=== PATIENT | female | born 1995 | race Two or more races ===

== ENCOUNTER → 2020-08-17 | Outpatient (CLI) | payer OTHER | END | disposition home or self-care (01) | LOC: PPH VACUNA | DX: Z23 Encounter for immunization (principal) ==

== ENCOUNTER → 2020-09-07 13:28 | Outpatient (CLI) | payer OTHER | END | disposition home or self-care (01) | LOC: PPH VACUNA 13:28 | DX: Z23 Encounter for immunization (principal) ==

== ENCOUNTER 2021-05-24 02:00 | Outpatient (CLI) | payer OTHER | END 2021-05-24 02:30 | disposition home or self-care (01) | LOC: PPH VACUNA 02:00 | PROVIDERS: ATTEND Emergency Medicine Pediatric Emergency Medicine | DX: Z23 Encounter for immunization (principal) ==

== ENCOUNTER 2024-10-30 19:27 | Inpatient (IN) | payer OTHER ==
[~2024-10-30] VITALS: Ht 165.1 cm; Wt 90.7 kg
[2024-10-30] MEDS ORDERED: [UNRECOGNIZED DRUG - OTHER] (19:41)
[2024-10-30] MEDS ORDERED: MIDODRINE HCL10 MG (19:41)
[2024-10-30] MEDS ORDERED: DULCOLAX5 MG (19:42)
[2024-10-30] MEDS ORDERED: LOVENOX30 MG/0.3 (19:42)
--- NOTE | 2024-10-30 19:42 | NUR ---
SE RECIBE PTE ALERTA Y ORIENTADA X3, EN AMBULANCIA EN COMPANIA DE PARAMEDICOS. REFIEREN HGB EN 8.1 Y UTI. ENVIADA POR . SE MELISSA SV Y SE UBICA
--- NOTE | 2024-10-30 20:07 | NUR ---
DARÍO MCCOY ORIENTA A PTE SOBRE TX MEDICO Y LA MISMA REFIERE ENTENDER Y ACEPTAR. CANALIZA Y COLECTA MUESTRAS DE LAB, CATETERIZA BAJO MEDIDAS ESTERILES PARA OBTENER MUESTRA DE UC Y UA.
[2024-10-30 20:33] LABS: BASO % 0.5 % (0.1-1.2); EOS # 0.37 (0.04-0.54); EOS % 2.6 % (0.7-7.0); LYMPH # 2.44 (1.18-3.74); LYMPH % 17.3 % (19.3-53.1); MEAN PLATELET VOLUME 9.60 fl (9.4-12.4); MONO # 1.16 (0.24-0.82); MONO % 8.2 % (4.7-12.5); NEUT # 10.00 (1.56-6.13); NEUT % 71.0 % (34.0-71.1); RED CELL DISTRIBUTION WIDTH 18.3 % (11.6-14.4)
[2024-10-30 20:56] LABS: URINE APPEARANCE Turbid; URINE BILIRRUBIN Negative (NEGATIVE); URINE BLOOD Large; URINE COLOR Yellow; URINE GLUCOSE Negative (NEGATIVE); URINE KETONE Negative (NEGATIVE); URINE LEUKOCYTE Large; URINE NITRATE Positive; URINE UROBILINOGEN 1.0 E.U./dl
[2024-10-30 20:57] LABS: URINE EPITHELIAL CELLS 113.0 uL (0.0-38.8); URINE RBC 175.2 uL (0.0-20.8)
[2024-10-30 21:12] LABS: ALT/SGPT 41.0 U/L (12-78); AST/SGOT 38.0 U/L (15-37); BILIRUBIN TOTAL 0.39 mg/dL (0.3-1.2); BUN CREA RATIO 43.0 (7.0-25.0); GFR 286.85; GLOBULINA 4.7 G/DL (2.4-3.5); GLUCOSE FASTING 103.0 mg/dL (65-100); OSMOLALITY SERUM 274.0 MOSM/KG (275-295)
[2024-10-30 21:13] LABS: URINE BACTERIA > 9821.5 uL (0.0-1933); URINE CAST > 21.83 uL (0.0-1.40); URINE PROTEIN 300 (NEGATIVE); URINE WBC > 5548.3 uL (0.0-23.2)
[2024-10-30 21:23] LABS: CREATININE SERUM 0.28 mg/dL (0.55-1.02)
[2024-10-30 21:27] LABS: TYPE CELLS SQUAMOUS; URINE YEAST NEGATIVE /hpf
[2024-10-30] MEDS ORDERED: CEFTRIAXONE SODIUM 2,000 MG in 0.9 % SODIUM CHLORIDE 100 ML IV SCH (22:11)
[2024-10-30] MEDS ORDERED: GABAPENTIN 300 MG CAPSULE PO SCH (22:12)
[2024-10-30] MEDS ORDERED: ONDANSETRON HCL 4 MG in 0.9 % SODIUM CHLORIDE 50 ML IV PRN (22:15)
[2024-10-30] MEDS ORDERED: 0.9 % SODIUM CHLORIDE 1,000 ML IV SCH (22:15)
[2024-10-30] MEDS ORDERED: ACETAMINOPHEN 500 MG GEL..CAP PO PRN (22:15)
[2024-10-31] MEDS ORDERED: BACLOFEN 10 MG TABLET PO SCH (05:00)
[2024-10-31 05:25] VITALS: BP 105/69
[2024-10-31] MEDS ORDERED: LEVOTHYROXINE SODIUM 25 MCG TABLET PO SCH (06:00)
[2024-10-31 08:00] VITALS: BP 99/67; O2SAT 100
[2024-10-31] MEDS ORDERED: ENOXAPARIN SODIUM 40 MG/0.4 ML SYRINGE SUBCUTANEO SCH (09:00)
[2024-10-31] MEDS ORDERED: OXYBUTYNIN CHLORIDE 5 MG TABLET PO SCH (09:00)
[2024-10-31] MEDS ORDERED: FAMOTIDINE/PF 20 MG in 0.9 % SODIUM CHLORIDE 8 ML IV PUSH SCH (09:00)
[2024-10-31] MEDS ORDERED: DOCUSATE SODIUM 100MG CAP PO SCH (09:00)
[2024-10-31] MEDS ORDERED: IRON FUM,PS/FOLIC/BCOMP,C NO.9 1 CAP CAPSULE PO SCH (09:00)
[2024-10-31 16:42] VITALS: BP 104/65; O2SAT 100
[2024-10-31] MEDS ORDERED: LACTOBACILLUS ACIDOPHILUS 1 CAP CAP PO SCH (17:00)
[2024-10-31] MEDS ORDERED: TRAZODONE HCL 50 MG TABLET PO SCH (21:00)
[2024-11-01 03:25] VITALS: BP 90/56; O2SAT 100
[2024-11-01 10:14] VITALS: BP 114/79
[2024-11-01 11:13] LABS: BASO % 0.3 % (0.1-1.2); EOS # 0.56 (0.04-0.54); EOS % 6.2 % (0.7-7.0); LYMPH # 1.81 (1.18-3.74); LYMPH % 20.1 % (19.3-53.1); MEAN PLATELET VOLUME 11.00 fl (9.4-12.4); MONO # 0.42 (0.24-0.82); MONO % 4.7 % (4.7-12.5); NEUT # 6.14 (1.56-6.13); NEUT % 68.0 % (34.0-71.1); RED CELL DISTRIBUTION WIDTH 17.2 % (11.6-14.4)
[2024-11-02 03:10] VITALS: BP 84/52; O2SAT 98
[2024-11-02 08:58] VITALS: BP 100/60
[2024-11-03 09:44] LABS: FOLIC ACID 5.35 ng/ml (4.78-20)
== END 2024-11-02 20:26 | disposition home or self-care (01) | DRG 811 ==
LOC: ER 19:27 → MEDJ 22:19
PROVIDERS: General Practice; Internal Medicine Hematology & Oncology; ADMIT Student in an Organized Health Care Education/Training Program; ATTEND Student in an Organized Health Care Education/Training Program
PROC: 30233N1 Transfusion of Nonautologous Red Blood Cells into Peripheral Vein, Percutaneous Approach (ICD-10-PCS; principal; 2024-10-31)
DX: D64.9 Anemia, unspecified (principal); G82.50 Quadriplegia, unspecified; N39.0 Urinary tract infection, site not specified; E03.9 Hypothyroidism, unspecified

== ENCOUNTER 2024-12-08 13:23 | Inpatient (IN) | payer OTHER ==
[~2024-12-08] VITALS: Ht 175.3 cm; Wt 86.2 kg
[~2024-12-08 13:23] MED LIST: DULCOLAX5 MG; LOVENOX30 MG/0.3; MIDODRINE HCL10 MG; [UNRECOGNIZED DRUG - OTHER]
[2024-12-08] MEDS ORDERED: 0.9 % SODIUM CHLORIDE 1,000 ML IV SCH ×2 (14:00→19:30)
[2024-12-08 14:21] LABS: BASO % 0.5 % (0.1-1.2); EOS # 0.07 (0.04-0.54); EOS % 0.6 % (0.7-7.0); LYMPH # 2.02 (1.18-3.74); LYMPH % 18.7 % (19.3-53.1); MEAN PLATELET VOLUME 9.20 fl (9.4-12.4); MONO # 0.79 (0.24-0.82); MONO % 7.3 % (4.7-12.5); NEUT # 7.82 (1.56-6.13); NEUT % 72.5 % (34.0-71.1); RED CELL DISTRIBUTION WIDTH 16.9 % (11.6-14.4)
[2024-12-08 14:53] LABS: URINE APPEARANCE Turbid; URINE BILIRRUBIN Negative (NEGATIVE); URINE BLOOD Moderate; URINE COLOR Yellow; URINE GLUCOSE Negative (NEGATIVE); URINE KETONE 15 (NEGATIVE); URINE LEUKOCYTE Large; URINE NITRATE Negative; URINE PROTEIN 30 (NEGATIVE); URINE UROBILINOGEN 1.0 E.U./dl
[2024-12-08 14:55] LABS: COVID-19 AG NEGATIVE (NEGATIVE)
[2024-12-08 14:56] LABS: ALT/SGPT 12.0 U/L (12-78); AST/SGOT 8.0 U/L (15-37); BILIRUBIN TOTAL 0.3 mg/dL (0.3-1.2); BUN CREA RATIO 45.0 (7.0-25.0); GFR 422.95; GLOBULINA 5.4 G/DL (2.4-3.5); GLUCOSE FASTING 85.0 mg/dL (65-100); OSMOLALITY SERUM 275.0 MOSM/KG (275-295)
[2024-12-08 14:57] LABS: CREATININE SERUM 0.2 mg/dL (0.55-1.02)
[2024-12-08 14:57] LABS: URINE CAST 20.18 uL (0.0-1.40); URINE RBC 39.9 uL (0.0-20.8)
[2024-12-08 15:21] LABS: URINE EPITHELIAL CELLS > 201.7 uL (0.0-38.8); URINE WBC > 5548.3 uL (0.0-23.2)
[2024-12-08 15:22] LABS: URINE BACTERIA > 9821.5 uL (0.0-1933); URINE MUCUS SCANT
[2024-12-08 15:23] LABS: TYPE CELLS SQUAMOUS
[2024-12-08] MEDS ORDERED: DOCUSATE SODIUM 100MG CAP PO SCH (19:24)
[2024-12-08] MEDS ORDERED: ACETAMINOPHEN 500 MG GEL..CAP PO PRN (19:30)
[2024-12-08 19:47] VITALS: BP 100/60
[2024-12-08] MEDS ORDERED: MEROPENEM 500 MG/VIAL VIAL IV SCH (20:00)
[2024-12-08 21:43] LABS: INR 1.26
[2024-12-09 05:47] VITALS: BP 110/68; O2SAT 98
[2024-12-09] MEDS ORDERED: LEVOTHYROXINE SODIUM 25 MCG TABLET PO SCH (06:00)
[2024-12-09 08:00] VITALS: BP 107/71; O2SAT 97
[2024-12-09] MEDS ORDERED: GABAPENTIN 400 MG CAPSULE PO SCH (09:00)
[2024-12-09] MEDS ORDERED: IRON FUM,PS/FOLIC/BCOMP,C NO.9 1 CAP CAPSULE PO SCH (09:00)
[2024-12-09] MEDS ORDERED: ENOXAPARIN SODIUM 40 MG/0.4 ML SYRINGE SUBCUTANEO SCH (09:00)
[2024-12-09] MEDS ORDERED: MIDODRINE HCL 5 MG TABLET PO SCH (09:00)
[2024-12-09] MEDS ORDERED: SODIUM HYPOCHLORITE 1OZ TOP SCH (09:00)
[2024-12-09] MEDS ORDERED: BACLOFEN 10 MG TABLET PO SCH (09:00)
[2024-12-09] MEDS ORDERED: VANCOMYCIN HCL 1,000 MG VIAL IV SCH (13:00)
[2024-12-09 16:00] VITALS: BP 114/75; O2SAT 98
[2024-12-09] MEDS ORDERED: CIPROFLOXACIN IN 5 % DEXTROSE 200 ML IV SCH (17:00)
[2024-12-10 01:00] VITALS: BP 102/68; O2SAT 97
[2024-12-10] MEDS ORDERED: IPRATROPIUM BROMIDE 0.5 MG/2.5 ML AMPUL.NEB IH SCH (01:00)
[2024-12-10 08:00] VITALS: BP 99/67; O2SAT 98
[2024-12-10] MEDS ORDERED: Cyanocobalamin/Mecobalamin 1 TAB.SL SL SCH (09:00)
[2024-12-10] MEDS ORDERED: BUDESONIDE 0.5 MG/2 ML AMPUL.NEB IH SCH (09:00)
[2024-12-10] MEDS ORDERED: MIDODRINE HCL 5 MG TABLET PO SCH (09:00)
[2024-12-10] MEDS ORDERED: SOD FERRIC GLUC COMPLX/SUCROSE 62.5 MG in 0.9 % SODIUM CHLORIDE 50 ML IV SCH (09:00)
[2024-12-10] MEDS ORDERED: GABAPENTIN 400 MG CAPSULE PO SCH (09:00)
[2024-12-10] MEDS ORDERED: ENOXAPARIN SODIUM 40 MG/0.4 ML SYRINGE SUBCUTANEO SCH (09:00)
[2024-12-10] MEDS ORDERED: DOCUSATE SODIUM 100MG CAP PO SCH (09:00)
[2024-12-10] MEDS ORDERED: BACLOFEN 10 MG TABLET PO SCH (09:00)
[2024-12-10] MEDS ORDERED: OXYBUTYNIN CHLORIDE 5 MG TABLET PO SCH (09:00)
[2024-12-10 10:27] LABS: BASO % 0.8 % (0.1-1.2); EOS # 0.31 (0.04-0.54); EOS % 4.7 % (0.7-7.0); LYMPH # 2.01 (1.18-3.74); LYMPH % 30.5 % (19.3-53.1); MEAN PLATELET VOLUME 9.30 fl (9.4-12.4); MONO # 0.61 (0.24-0.82); MONO % 9.2 % (4.7-12.5); NEUT # 3.58 (1.56-6.13); NEUT % 54.2 % (34.0-71.1); RED CELL DISTRIBUTION WIDTH 17.1 % (11.6-14.4)
[2024-12-10 11:38] LABS: ALT/SGPT 38 U/L (12-78); AST/SGOT 40 U/L (15-37); BILIRUBIN TOTAL 0.34 mg/dL (0.3-1.2); GLOBULINA 4.3 G/DL (2.4-3.5); GLUCOSE FASTING 87 mg/dL (65-100); OSMOLALITY SERUM 275 MOSM/KG (275-295); TSH 4.780 uIU/mL (0.358-3.74)
[2024-12-10 11:41] LABS: BUN CREA RATIO 20 (7.0-25.0); CREATININE SERUM < 0.15 mg/dL (0.55-1.02); GFR 589.50
[2024-12-10 16:00] VITALS: BP 87/57; O2SAT 97
[2024-12-10] MEDS ORDERED: CHLORHEXIDINE GLUCONATE 120 ML BOTTLE TOP SCH (17:00)
[2024-12-10] MEDS ORDERED: MUPIROCIN 22 GM OINT..GM TUBE NASAL SCH (17:00)
[2024-12-10] MEDS ORDERED: AMITRIPTYLINE HCL 25 MG TABLET PO SCH (21:00)
[2024-12-10] MEDS ORDERED: POLYETHYLENE GLYCOL 3350 17 GM BLIST.PACK PO SCH (21:00)
[2024-12-11 01:52] VITALS: BP 93/64; O2SAT 100
[2024-12-11 06:20] LABS: URINE APPEARANCE Cloudy; URINE BILIRRUBIN Negative (NEGATIVE); URINE BLOOD Trace; URINE COLOR Yellow; URINE GLUCOSE Negative (NEGATIVE); URINE KETONE Negative (NEGATIVE); URINE LEUKOCYTE Trace; URINE NITRATE Negative; URINE PROTEIN 30 (NEGATIVE); URINE UROBILINOGEN 1.0 E.U./dl
[2024-12-11 06:29] LABS: URINE BACTERIA 33.5 uL (0.0-1933); URINE EPITHELIAL CELLS 14.9 uL (0.0-38.8); URINE RBC 3.2 uL (0.0-20.8); URINE WBC 57.3 uL (0.0-23.2)
[2024-12-11] MEDS ORDERED: CHLORHEXIDINE GLUCONATE 15ML BRUSH KIT MM SCH (06:42)
[2024-12-11] MEDS ORDERED: SODIUM CHLORIDE 0.45 % 1,000 ML IV SCH (06:45)
[2024-12-11 07:01] LABS: URINE CAST 0.87 uL (0.0-1.40); URINE CRYSTALS FEW /HPF
[2024-12-11 08:00] VITALS: BP 106/70; O2SAT 98
[2024-12-11] MEDS ORDERED: MUPIROCIN 15 GM OINT..GM TUBE NASAL SCH (09:00)
[2024-12-11] MEDS ORDERED: CHLORHEXIDINE GLUCONATE 120 ML BOTTLE TOP SCH (09:00)
[2024-12-11] MEDS ORDERED: ALBUMIN HUMAN 100 ML VIAL IV SCH (13:00)
[2024-12-11 16:00] VITALS: BP 110/62; O2SAT 100
[2024-12-11] MEDS ORDERED: VANCOMYCIN HCL 1,000 MG VIAL IV SCH (17:00)
[2024-12-12 02:14] VITALS: BP 104/55; O2SAT 97
[2024-12-12] MEDS ORDERED: LEVOTHYROXINE SODIUM 25 MCG TABLET PO SCH (06:00)
[2024-12-12 07:09] LABS: BASO % 0.6 % (0.1-1.2); EOS # 0.32 (0.04-0.54); EOS % 4.7 % (0.7-7.0); LYMPH # 2.01 (1.18-3.74); LYMPH % 29.6 % (19.3-53.1); MEAN PLATELET VOLUME 9.50 fl (9.4-12.4); MONO # 0.44 (0.24-0.82); MONO % 6.5 % (4.7-12.5); NEUT # 3.86 (1.56-6.13); NEUT % 57.0 % (34.0-71.1); RED CELL DISTRIBUTION WIDTH 17.2 % (11.6-14.4)
[2024-12-12 07:44] LABS: ALT/SGPT 20.0 U/L (12-78); AST/SGOT 10.0 U/L (15-37); BILIRUBIN TOTAL 0.34 mg/dL (0.3-1.2); GLOBULINA 3.7 G/DL (2.4-3.5); GLUCOSE FASTING 100.0 mg/dL (65-100); OSMOLALITY SERUM 278.0 MOSM/KG (275-295)
[2024-12-12 07:53] LABS: BUN CREA RATIO 12.0 (7.0-25.0); CREATININE SERUM 0.25 mg/dL (0.55-1.02); GFR 326.92
[2024-12-12 16:00] VITALS: BP 95/69; O2SAT 100
[2024-12-12] MEDS ORDERED: VANCOMYCIN HCL 5 MG/ML REDILUIDO IV SCH (17:00)
[2024-12-13 01:33] VITALS: BP 100/68; O2SAT 98
[2024-12-13 08:00] VITALS: BP 93/58; O2SAT 96
[2024-12-13 16:00] VITALS: BP 109/72; O2SAT 96
[2024-12-14 01:23] VITALS: BP 92/59; O2SAT 98
[2024-12-14 08:00] VITALS: BP 90/59; O2SAT 96
[2024-12-14 16:00] VITALS: BP 108/68; O2SAT 96
[2024-12-15 01:03] VITALS: BP 117/76; O2SAT 97
[2024-12-15] MEDS ORDERED: AMINO ACIDS/PROTEIN HYDROLYS 30 ML BLIST.PACK PO SCH (09:00)
[2024-12-15 09:45] VITALS: BP 101/66; O2SAT 98
[2024-12-15] MEDS ORDERED: LEVOFLOXACIN500 MG PO (13:05)
[2024-12-15] MEDS ORDERED: PROTONIX40 MG PO (13:06)
[2024-12-15 16:00] VITALS: BP 110/72; O2SAT 97
[2024-12-16 02:05] VITALS: BP 100/70; O2SAT 97
[2024-12-16 08:00] VITALS: BP 92/62; O2SAT 98
[2024-12-16 17:04] VITALS: BP 115/75; O2SAT 100
[2024-12-17 00:58] VITALS: BP 106/66; O2SAT 100
[2024-12-17 10:29] VITALS: BP 101/65; O2SAT 98
== END 2024-12-17 13:37 | DRG 592 ==
LOC: ER 13:23 → SURG 19:46 → SEC-K 19:46 → SURG 12-09 00:01 → SURH 12-09 15:01
PROVIDERS: Emergency Medicine; General Practice; Internal Medicine Infectious Disease; ADMIT Internal Medicine; ATTEND Internal Medicine
PROC: BW21YZZ Computerized Tomography (CT Scan) of Abdomen and Pelvis using Other Contrast (ICD-10-PCS; principal; 2024-12-08)
PROC: CP1Z1ZZ Planar Nuclear Medicine Imaging of Musculoskeletal System, All using Technetium 99m (Tc-99m) (ICD-10-PCS; 2024-12-08)
PROC: 0HB8XZZ Excision of Buttock Skin, External Approach (ICD-10-PCS; 2024-12-09)
PROC: 0HB6XZZ Excision of Back Skin, External Approach (ICD-10-PCS; 2024-12-09)
PROC: 8E0ZXY6 Isolation (ICD-10-PCS; 2024-12-09)
PROC: 30233N1 Transfusion of Nonautologous Red Blood Cells into Peripheral Vein, Percutaneous Approach (ICD-10-PCS; 2024-12-14)
DX: L89.154 Pressure ulcer of sacral region, stage 4 (principal); G82.50 Quadriplegia, unspecified; N39.0 Urinary tract infection, site not specified; L89.323 Pressure ulcer of left buttock, stage 3; L89.153 Pressure ulcer of sacral region, stage 3; D63.8 Anemia in other chronic diseases classified elsewhere; D64.9 Anemia, unspecified; Z74.01 Bed confinement status; B96.4 Proteus (mirabilis) (morganii) as the cause of diseases classified elsewhere; B96.89 Other specified bacterial agents as the cause of diseases classified elsewhere; B95.61 Methicillin susceptible Staphylococcus aureus infection as the cause of diseases classified elsewhere

== ENCOUNTER 2024-12-28 11:58 | Inpatient (IN) | payer OTHER ==
[~2024-12-28] VITALS: Ht 152.4 cm; Wt 86.2 kg
[~2024-12-28 11:58] MED LIST changes: +LEVOFLOXACIN500 MG PO; +PROTONIX40 MG PO
[2024-12-28] MEDS ORDERED: 0.9 % SODIUM CHLORIDE 1,000 ML IV STA (12:15)
[2024-12-28] MEDS ORDERED: OXYBUTYNIN CHLOR5 MG PO (12:20)
[2024-12-28] MEDS ORDERED: COLACE100 MG PO (12:20)
[2024-12-28] MEDS ORDERED: DIALYVITE TABL1 EACH PO (12:20)
[2024-12-28] MEDS ORDERED: IRON325 MG PO (12:21)
[2024-12-28] MEDS ORDERED: SENNA LAXATIVE8.6 MG PO (12:21)
[2024-12-28] MEDS ORDERED: GRALISE600 MG PO (12:21)
[2024-12-28] MEDS ORDERED: LEVO-T25 MCG PO (12:21)
[2024-12-28] MEDS ORDERED: MIDODRINE HCL10 MG PO (12:22)
[2024-12-28 13:15] LABS: BASO % 0.3 % (0.1-1.2); EOS # 0.01 (0.04-0.54); EOS % 0.1 % (0.7-7.0); LYMPH # 1.74 (1.18-3.74); LYMPH % 12.7 % (19.3-53.1); MEAN PLATELET VOLUME 9.70 fl (9.4-12.4); MONO # 1.23 (0.24-0.82); MONO % 9.0 % (4.7-12.5); NEUT # 10.57 (1.56-6.13); NEUT % 77.1 % (34.0-71.1); RED CELL DISTRIBUTION WIDTH 16.6 % (11.6-14.4)
[2024-12-28 13:19] LABS: ALT/SGPT 23.0 U/L (12-78); AST/SGOT 23.0 U/L (15-37); BILIRUBIN TOTAL 0.67 mg/dL (0.3-1.2); BUN CREA RATIO 63.0 (7.0-25.0); CREATININE SERUM 0.59 mg/dL (0.55-1.02); GFR 121.37; GLOBULINA 5.4 G/DL (2.4-3.5); GLUCOSE FASTING 101.0 mg/dL (65-100); OSMOLALITY SERUM 281.0 MOSM/KG (275-295)
[2024-12-28 13:20] LABS: URINE APPEARANCE Turbid; URINE BILIRRUBIN Negative (NEGATIVE); URINE BLOOD Moderate; URINE COLOR Yellow; URINE GLUCOSE Negative (NEGATIVE); URINE KETONE 15 (NEGATIVE); URINE LEUKOCYTE Large; URINE NITRATE Negative; URINE PROTEIN 30 (NEGATIVE); URINE UROBILINOGEN 1.0 E.U./dl
[2024-12-28 13:24] LABS: URINE BACTERIA 4434.0 uL (0.0-1933); URINE CAST 2.49 uL (0.0-1.40); URINE EPITHELIAL CELLS 7.6 uL (0.0-38.8); URINE RBC 17.1 uL (0.0-20.8); URINE WBC 4010.5 uL (0.0-23.2)
[2024-12-28 13:27] LABS: COVID-19 AG NEGATIVE (NEGATIVE)
[2024-12-28] MEDS ORDERED: CEFTRIAXONE SODIUM 1,000 MG VIAL ONE ×2 (15:29→21:25)
[2024-12-28] MEDS ORDERED: CEFTRIAXONE SODIUM 1,000 MG VIAL IV ONE (15:30)
[2024-12-28] MEDS ORDERED: ACETAMINOPHEN 500 MG GEL..CAP PO ONE (16:26)
[2024-12-28] MEDS ORDERED: CEFTRIAXONE SODIUM 1,000 MG VIAL IV SCH (20:27)
[2024-12-28] MEDS ORDERED: ENOXAPARIN SODIUM 40 MG/0.4 ML SYRINGE SUBCUTANEO SCH (20:28)
[2024-12-28] MEDS ORDERED: PANTOPRAZOLE SODIUM 40 MG/VIAL VIAL IV SCH (20:29)
[2024-12-28] MEDS ORDERED: 0.9 % SODIUM CHLORIDE 1,000 ML IV SCH (20:30)
[2024-12-28] MEDS ORDERED: ACETAMINOPHEN 325 MG TABLET PO PRN (20:30)
[2024-12-28] MEDS ORDERED: GABAPENTIN 400 MG CAPSULE PO SCH (20:55)
[2024-12-28] MEDS ORDERED: ENOXAPARIN SODIUM 40 MG/0.4 ML SYRINGE SUBCUTANEO ONE (21:25)
[2024-12-28 21:47] LABS: INR 1.28
[2024-12-29 00:22] VITALS: BP 103/62; O2SAT 99
[2024-12-29 02:34] VITALS: BP 103/65; O2SAT 97
[2024-12-29] MEDS ORDERED: LEVOTHYROXINE SODIUM 25 MCG TABLET PO SCH (06:00)
[2024-12-29 08:21] VITALS: BP 110/74
[2024-12-29] MEDS ORDERED: MEROPENEM 500 MG/VIAL VIAL IV SCH (14:00)
[2024-12-29 16:50] VITALS: BP 108/73
[2024-12-29] MEDS ORDERED: GABAPENTIN 400 MG CAPSULE PO SCH (17:00)
[2024-12-29] MEDS ORDERED: ADVAIR IH SCH (17:00)
[2024-12-29] MEDS ORDERED: OXYBUTYNIN CHLORIDE 5 MG TABLET PO SCH (17:00)
[2024-12-29] MEDS ORDERED: FLUTICASONE PROPIONATE 50 MCG SPRAY NASAL SCH (17:00)
[2024-12-29] MEDS ORDERED: BACLOFEN 10 MG TABLET PO SCH (17:00)
[2024-12-29] MEDS ORDERED: VANCOMYCIN HCL 1,000 MG VIAL IV SCH (17:00)
[2024-12-29] MEDS ORDERED: AMITRIPTYLINE HCL 25 MG TABLET PO SCH (21:00)
[2024-12-30 01:00] VITALS: BP 96/63; O2SAT 97
[2024-12-30 07:59] LABS: BASO % 0.4 % (0.1-1.2); EOS # 0.12 (0.04-0.54); EOS % 1.7 % (0.7-7.0); LYMPH # 1.76 (1.18-3.74); LYMPH % 25.1 % (19.3-53.1); MEAN PLATELET VOLUME 10.30 fl (9.4-12.4); MONO # 0.74 (0.24-0.82); MONO % 10.6 % (4.7-12.5); NEUT # 4.31 (1.56-6.13); NEUT % 61.5 % (34.0-71.1); RED CELL DISTRIBUTION WIDTH 16.2 % (11.6-14.4)
[2024-12-30 08:24] VITALS: BP 106/73; O2SAT 97
[2024-12-30 08:44] LABS: ALT/SGPT 21.0 U/L (12-78); AST/SGOT 20.0 U/L (15-37); BILIRUBIN TOTAL 0.32 mg/dL (0.3-1.2); GLOBULINA 4.2 G/DL (2.4-3.5); GLUCOSE FASTING 76.0 mg/dL (65-100); OSMOLALITY SERUM 280.0 MOSM/KG (275-295)
[2024-12-30 08:45] LABS: BUN CREA RATIO 33.0 (7.0-25.0); CREATININE SERUM 0.21 mg/dL (0.55-1.02); GFR 399.77
[2024-12-30] MEDS ORDERED: FERROUS SULFATE 325 MG TABLET.EC PO SCH (09:00)
[2024-12-30] MEDS ORDERED: SENNA/DOCUSATE SODIUM 1 TAB TABLET PO SCH (09:00)
[2024-12-30] MEDS ORDERED: BISACODYL 5 MG TABLET.EC PO SCH (09:00)
[2024-12-30] MEDS ORDERED: FOLIC ACID 1 MG TABLET PO SCH (09:00)
[2024-12-30] MEDS ORDERED: AMINO ACIDS/PROTEIN HYDROLYS 30 ML BLIST.PACK PO SCH (09:00)
[2024-12-30 16:57] LABS: ob NEGATIVE (NEGATIVE)
[2024-12-30 17:53] VITALS: BP 134/84
[2024-12-31 00:31] VITALS: BP 96/63; O2SAT 96
[2024-12-31 08:39] VITALS: BP 130/80; O2SAT 98
[2024-12-31] MEDS ORDERED: MAGNESIUM SULFATE IN WATER 50 ML IV SCH (10:00)
[2024-12-31] MEDS ORDERED: POTASSIUM CHLORIDE IN WATER 40 MEQ/100 ML PIGGYBAG IV SCH (13:00)
[2024-12-31 15:24] LABS: URINE APPEARANCE Clear; URINE BILIRRUBIN Negative (NEGATIVE); URINE BLOOD Negative; URINE COLOR Yellow; URINE GLUCOSE Negative (NEGATIVE); URINE KETONE Negative (NEGATIVE); URINE LEUKOCYTE Small; URINE NITRATE Negative; URINE PROTEIN Negative (NEGATIVE); URINE UROBILINOGEN 0.2 E.U./dl
[2024-12-31 15:28] LABS: URINE BACTERIA 71.9 uL (0.0-1933); URINE EPITHELIAL CELLS 8.1 uL (0.0-38.8); URINE RBC 7.6 uL (0.0-20.8); URINE WBC 52.4 uL (0.0-23.2)
[2024-12-31 15:47] LABS: URINE CAST 0.14 uL (0.0-1.40)
[2024-12-31] MEDS ORDERED: VANCOMYCIN HCL 5 MG/ML REDILUIDO IV SCH (17:00)
[2024-12-31 17:37] VITALS: BP 110/72; O2SAT 98
[2025-01-01 02:13] VITALS: BP 95/61; O2SAT 96
[2025-01-01 08:14] VITALS: BP 124/85; O2SAT 98
[2025-01-01] MEDS ORDERED: MAGNESIUM SULFATE/D5W 1GM/100ML PIGGYBAG IV NR (11:00)
[2025-01-01] MEDS ORDERED: POTASSIUM CHLORIDE IN WATER 40 MEQ/100 ML PIGGYBAG IV SCH (13:00)
[2025-01-01 17:09] VITALS: BP 114/78; O2SAT 97
[2025-01-02 01:10] VITALS: BP 131/86; O2SAT 97
[2025-01-02 06:14] LABS: BASO % 0.6 % (0.1-1.2); EOS # 0.59 (0.04-0.54); EOS % 7.1 % (0.7-7.0); LYMPH # 2.64 (1.18-3.74); LYMPH % 31.8 % (19.3-53.1); MEAN PLATELET VOLUME 9.70 fl (9.4-12.4); MONO # 0.62 (0.24-0.82); MONO % 7.5 % (4.7-12.5); NEUT # 4.26 (1.56-6.13); NEUT % 51.4 % (34.0-71.1); RED CELL DISTRIBUTION WIDTH 16.1 % (11.6-14.4)
[2025-01-02 06:42] LABS: ALT/SGPT 13.0 U/L (12-78); AST/SGOT 15.0 U/L (15-37); BILIRUBIN TOTAL 0.16 mg/dL (0.3-1.2); BUN CREA RATIO 46.0 (7.0-25.0); GFR 312.45; GLOBULINA 4.3 G/DL (2.4-3.5); GLUCOSE FASTING 79.0 mg/dL (65-100); OSMOLALITY SERUM 287.0 MOSM/KG (275-295)
[2025-01-02 06:46] LABS: CREATININE SERUM 0.26 mg/dL (0.55-1.02)
[2025-01-02 08:13] VITALS: BP 109/77; O2SAT 99
[2025-01-02] MEDS ORDERED: PANTOPRAZOLE SODIUM 40 MG TABLET.DR PO SCH (09:00)
[2025-01-02 17:33] VITALS: BP 100/65; O2SAT 100
[2025-01-03 02:07] VITALS: BP 89/58; O2SAT 98
[2025-01-03 08:24] VITALS: BP 110/75
[2025-01-03 17:30] VITALS: BP 130/79
[2025-01-04 02:37] VITALS: BP 94/59; O2SAT 98
[2025-01-04 08:58] VITALS: BP 113/67
[2025-01-04 18:09] VITALS: BP 101/69
[2025-01-05 02:54] VITALS: BP 103/68; O2SAT 99
[2025-01-05 08:28] VITALS: BP 119/78
[2025-01-05 17:18] VITALS: BP 87/60; O2SAT 100
[2025-01-05 17:22] VITALS: BP 117/76; O2SAT 95
[2025-01-05 17:24] VITALS: BP 87/60; O2SAT 100
== END 2025-01-05 22:03 | disposition home or self-care (01) | DRG 871 ==
LOC: ER 11:58 → MEDJ 20:35
PROVIDERS: Emergency Medicine; General Practice; Internal Medicine Infectious Disease; ADMIT Internal Medicine; ATTEND Internal Medicine
PROC: 02HV33Z Insertion of Infusion Device into Superior Vena Cava, Percutaneous Approach (ICD-10-PCS; principal; 2024-12-29)
PROC: 0JB73ZZ Excision of Back Subcutaneous Tissue and Fascia, Percutaneous Approach (ICD-10-PCS; 2024-12-29)
PROC: 0JBL3ZZ Excision of Right Upper Leg Subcutaneous Tissue and Fascia, Percutaneous Approach (ICD-10-PCS; 2024-12-29)
PROC: 8E0ZXY6 Isolation (ICD-10-PCS; 2024-12-30)
DX: A41.9 Sepsis, unspecified organism (principal); G82.50 Quadriplegia, unspecified; L89.153 Pressure ulcer of sacral region, stage 3; N39.0 Urinary tract infection, site not specified; L97.518 Non-pressure chronic ulcer of other part of right foot with other specified severity; B96.29 Other Escherichia coli [E. coli] as the cause of diseases classified elsewhere; B95.61 Methicillin susceptible Staphylococcus aureus infection as the cause of diseases classified elsewhere; L08.89 Other specified local infections of the skin and subcutaneous tissue; D63.8 Anemia in other chronic diseases classified elsewhere